=== PATIENT | female | born 1990 | race Caucasian/White ===

== ENCOUNTER → 2017-02-08 | Outpatient (CLI) | payer OTHER ==
[2017-02-08 12:47] LABS: BASO % 0.6 %; BASO ABS # 0.03 K/uL (0-0.2); COMPLETE YES; EOS % 3.5 %; HEMATOCRIT 42.5 % (37-47); IG% 0.2 %; LYMPH % 37.1 %; LYMPH ABS # 2.02 K/uL (1.2-3.4); MEAN CELL VOLUME 90.4 fL (80-100); MEAN CORPUSCULAR HEMOGLOBIN 32.1 pg (25-34); MEAN CORPUSCULAR HGB CONC 35.5 g/dl (32-36); MEAN PLATELET VOLUME 9.6 fL (7.4-10.4); MONO % 8.8 %; NEUT % 49.8 %; PLATELET COUNT 270 K/uL (130-400); WHITE BLOOD COUNT 5.45 K/uL (4.8-10.8)
[2017-02-08 13:19] LABS: ESTIMATED AVERAGE GLUCOSE 91 mg/dl; HA1C FLAG Normal (Normal)
[2017-02-08 13:37] LABS: ALT/SGPT 121 U/L (12-78); BLOOD UREA NITROGEN 9 mg/dl (7-18); BUN/CREATININE RATIO 11.8 (10-20); CALCIUM 8.3 mg/dl (8.5-10.1); CARBON DIOXIDE 28 mmol/L (21-32); CHLORIDE 103 mmol/L (98-107); CHOLESTEROL 166 mg/dl (0-200); CREATININE 0.76 mg/dl (0.60-1.20); GLUCOSE 78 mg/dl (70-99); POTASSIUM 3.6 mmol/L (3.5-5.1); SODIUM 138 mmol/L (136-145); TRIGLYCERIDES 106 mg/dl (0-150); VERY LOW DENSITY LIPOPROT CALC 21 mg/dl
[2017-02-08 13:46] LABS: ALB/GLOB RATIO 0.9 (0.9-2); ALKALINE PHOSPHATASE 64 U/L (45-117); AST/SGOT 64 U/L (15-37); CHOLESTEROL/HDL RATIO 3.1; HDL CHOLESTEROL 53 mg/dl; LDL CHOLESTEROL CALCULATED 92 mg/dl
== END | disposition home or self-care (01) ==
LOC: C.LABPBG 10:57
PROVIDERS: ATTEND Nurse Practitioner Family
DX: E03.9 Hypothyroidism, unspecified (principal); E66.9 Obesity, unspecified; Z13.220 Encounter for screening for lipoid disorders; Z13.1 Encounter for screening for diabetes mellitus

== ENCOUNTER 2017-11-22 11:26 | Emergency (ER) | payer SELFPAY ==
[~2017-11-22] VITALS: Ht 160 cm; Wt 80.0 kg
[2017-11-22 11:31] VITALS: TEMP 36.6; Ht 160 cm; Wt 80.0 kg
[2017-11-22] MEDS ORDERED: KETOROLAC TROMETHAMINE 30 MG/ML VIAL IV STA (12:03)
[2017-11-22] MEDS ORDERED: LEVOTHYROXINE 175 MCG TAB PO STA (12:03)
[2017-11-22] MEDS ORDERED: SODIUM CHLORIDE 0.9% 1000ML 1,000 ML IV STA (12:03)
[2017-11-22] MEDS ORDERED: CIPROFLOXACIN HCL 0.3% OP SOLN 2.5 ML BTL OP STA (12:03)
[2017-11-22] MEDS ORDERED: ONDANSETRON INJ 2 MG/ML 2 ML VIAL IV STA (12:03)
[2017-11-22] MEDS ORDERED: ACETAMINOPHEN 500 MG TAB PO STA (12:03)
[2017-11-22] MEDS ORDERED: AMPICILLIN/SULBACTAM SOD INJ 3,000 MG in SODIUM CHLORIDE 0.9% 100ML 100 ML IV ONE (12:15)
--- NOTE | 2017-11-22 12:21 | DIAGNOSTIC IMAGING REPORT ---
CHEST ONE VIEW PORTABLE CLINICAL HISTORY: 27 years-old Female presenting with cough. TECHNIQUE: Portable upright AP view of the chest was obtained. COMPARISON: None. FINDINGS: Cardiomediastinal silhouette normal. Lungs and pleural spaces clear. Osseous structures normal. Upper abdomen normal. IMPRESSION: 1. No acute cardiopulmonary disease. Electronically signed by: Tino Marte M.D. 11/22/2017 12:19 PM Dictated Date/Time: 11/22/2017 12:18 PM
--- NOTE | 2017-11-22 12:22 | EMERGENCY ROOM VISIT NOTE ---
History Report prepared by Lauren: Natali Deras Under the Supervision of: Dr. Miquel Perez M.D. First contact with patient: 11:47 Chief Complaint: SORETHROAT Stated Complaint: STYE, WHITE PUSS THROAT, BREATHING DIFFICULTIES History of Present Illness The patient is a 27 year old female who presents to the Emergency Room with complaints of worsening generalized illness beginning three weeks ago. The patient went to an acute care facility three weeks ago because she was having sinus pressure and difficulty breathing. She was diagnosed with a sinus infection and was started on a steroid and antibiotic. She has since finished her antibiotics. She reports swelling and a stye to her left eye beginning 8 hours ago. The patient does not wear corrective lenses. She notes a persistent cough, sore throat, decreased appetite, difficulty breathing, and nausea but denies any fever, urinary symptoms or vomiting. The patient took ibuprofen with minimal relief. She has a history of asthma and has been using an inhaler and nebulizer for her symptoms. She reports a history of bronchitis and hypothyroidism. She notes an inability to get her medications filled because she doesn't have insurance. The patient did not get a flu shot this year. Source of History: patient Onset: 3 weeks ago Position: other (generalized) Quality: other (illness) Timing: worsening Associated Symptoms: + sorethroat, + cough, + SOB, + nausea, No fevers, No vomiting, No urinary symptoms Review of Systems See HPI for pertinent positives & negatives. A total of 10 systems reviewed and were otherwise negative. Past Medical & Surgical Medical Problems: (1) Hypothyroidism Family History Patient reports no known family medical history. Social History Smoking Status: Never Smoker Marital Status: single Housing Status: lives with family Occupation Status: employed Current/Historical Medications Scheduled Amoxicillin & Pot Clavulanate (Augmentin 875-125 mg), 875 MG PO BID Ciprofloxacin Hcl (Ophth) (Ciloxan Oph), 1 DROPS OP TID Levothyroxine Sodium (Levothyroxine Sodium), 1 TAB PO DAILY Scheduled PRN Albuterol Sulf (Albuterol Sulfate), 1 VIAL INH DAILY PRN for SOB/Wheezing Allergies Coded Allergies: No Known Allergies (Unverified , 11/22/17) Physical Exam Vital Signs Date Time Temp Pulse Resp B/P (MAP) Pulse Ox O2 Delivery O2 Flow Rate FiO2 11/22/17 14:18 72 140/81 97 Room Air 11/22/17 11:59 92 18 149/97 99 Room Air 11/22/17 11:59 99 Room Air 11/22/17 11:36 99 Room Air 11/22/17 11:31 36.6 119 19 146/104 99 Room Air Physical Exam GENERAL: Patient is in no acute distress. HEENT: Bilateral otitis media, worse on left. Throat erythema with exudate, no evidence of peritonsillar abscess, nasal congestion present, edema to eyelids worse on left with evidence of bilateral conjunctivitis, puss like discharge on lashes worse on left, pupils are round and reactive to light. NECK: No stridor, moderate bilateral anterior cervical adenopathy, no meningismus, trachea is midline. LUNGS: Clear to auscultation bilaterally, no wheeze, no rhonchi, breath sounds equal. HEART: Without murmurs gallops or rubs, regular rate and rhythm. ABDOMEN: Soft, nontender, bowel sounds positive, no hernias, no peritonitis. EXTREMITIES: No cyanosis or edema, full range of motion of all the joints without pain or difficulty, no signs for acute trauma. NEUROLOGIC: Oriented x 3, no acute motor or sensory deficits, no focal weakness. SKIN: No rash, no jaundice, no diaphoresis. Medical Decision & Procedures ER Provider Diagnostic Interpretation: Radiology results as stated below per my review and radiologist interpretation: CHEST ONE VIEW PORTABLE FINDINGS: Cardiomediastinal silhouette normal. Lungs and pleural spaces clear. Osseous structures normal. Upper abdomen normal. IMPRESSION: 1. No acute cardiopulmonary disease. Electronically signed by: Tino Marte M.D. Laboratory Results 11/22/17 12:35 Red Blood Count 4.61, Mean Corpuscular Volume 87.2, Mean Corpuscular Hemoglobin 31.0, Mean Corpuscular Hemoglobin Concent 35.6, Mean Platelet Volume 9.7, Neutrophils (%) (Auto) 67.0, Lymphocytes (%) (Auto) 22.1, Monocytes (%) (Auto) 7.4, Eosinophils (%) (Auto) 3.0, Basophils (%) (Auto) 0.5, Neutrophils # (Auto) 5.41, Lymphocytes # (Auto) 1.78, Monocytes # (Auto) 0.60, Eosinophils # (Auto) 0.24, Basophils # (Auto) 0.04 11/22/17 12:35 Test 11/22/17 12:30 11/22/17 12:35 Influenza Type A Antigen Neg for Influ A (NEG) Influenza Type B Antigen Neg for Influ B (NEG) White Blood Count 8.07 K/uL (4.8-10.8) Red Blood Count 4.61 M/uL (4.2-5.4) Hemoglobin 14.3 g/dL (12.0-16.0) Hematocrit 40.2 % (37-47) Mean Corpuscular Volume 87.2 fL (80-100) Mean Corpuscular Hemoglobin 31.0 pg (25-34) Mean Corpuscular Hemoglobin Concent 35.6 g/dl (32-36) Platelet Count 235 K/uL (130-400) Mean Platelet Volume 9.7 fL (7.4-10.4) Neutrophils (%) (Auto) 67.0 % Lymphocytes (%) (Auto) 22.1 % Monocytes (%) (Auto) 7.4 % Eosinophils (%) (Auto) 3.0 % Basophils (%) (Auto) 0.5 % Neutrophils # (Auto) 5.41 K/uL (1.4-6.5) Lymphocytes # (Auto) 1.78 K/uL (1.2-3.4) Monocytes # (Auto) 0.60 K/uL (0.11-0.59) Eosinophils # (Auto) 0.24 K/uL (0-0.5) Basophils # (Auto) 0.04 K/uL (0-0.2) RDW Standard Deviation 41.5 fL (36.4-46.3) RDW Coefficient of Variation 12.9 % (11.5-14.5) Immature Granulocyte % (Auto) 0.0 % Immature Granulocyte # (Auto) 0.00 K/uL (0.00-0.02) Anion Gap 6.0 mmol/L (3-11) Est Creatinine Clear Calc Drug Dose 132.2 ml/min Estimated GFR () 141.7 Estimated GFR (Non- 122.3 BUN/Creatinine Ratio 17.3 (10-20) Calcium Level 8.8 mg/dl (8.5-10.1) Total Bilirubin 0.5 mg/dl (0.2-1) Aspartate Amino Transf (AST/SGOT) 12 U/L (15-37) Alanine Aminotransferase (ALT/SGPT) 20 U/L (12-78) Alkaline Phosphatase 83 U/L (45-117) Total Protein 7.5 gm/dl (6.4-8.2) Albumin 3.1 gm/dl (3.4-5.0) Globulin 4.4 gm/dl (2.5-4.0) Albumin/Globulin Ratio 0.7 (0.9-2) Thyroid Stimulating Hormone (TSH) 19.500 uIu/ml (0.300-4.500) Free Thyroxine 1.14 ng/dl (0.80-1.60) Free Triiodothyronine 3.25 pg/ml (2.30-4.20) Monoscreen NEG (NEG) Laboratory results reviewed by me. Medications Administered Medications (Trade) Dose Ordered Sig/Stanley Route Start Time Stop Time Status Last Admin Dose Admin Ciprofloxacin HCl (Ciprofloxacin 0.3% Op Soln) 2 drops NOW STAT OP 11/22/17 12:03 11/22/17 12:09 DC 11/22/17 12:18 2 DROPS Ampicillin Sodium/ Sulbactam Sodium 3000 mg/Sodium Chloride 108 ml @ 200 mls/hr ONE ONCE IV 11/22/17 12:15 11/22/17 12:47 DC 11/22/17 12:47 200 MLS/HR Sodium Chloride 1,000 ml @ 999 mls/hr Q1H1M STAT IV 11/22/17 12:03 11/22/17 13:03 DC 11/22/17 12:19 999 MLS/HR Ondansetron HCl (Zofran Inj) 4 mg NOW STAT IV 11/22/17 12:03 11/22/17 12:09 DC 11/22/17 12:17 4 MG Levothyroxine Sodium (Synthroid Tab) 175 mcg NOW STAT PO 11/22/17 12:03 11/22/17 12:09 DC 11/22/17 12:24 175 MCG Acetaminophen (Tylenol Tab) 1,000 mg NOW STAT PO 11/22/17 12:03 11/22/17 12:09 DC 11/22/17 12:17 1,000 MG Ketorolac Tromethamine (Toradol Inj) 30 mg NOW STAT IV 11/22/17 12:03 11/22/17 12:09 DC 11/22/17 12:17 30 MG ECG Indication: palpitations Rate (beats per minute): 95 Rhythm: sinus rhythm Findings: PVC, no acute ischemic change ED Course 1148: The patient was evaluated in room B10. A complete history and physical exam was performed. 1203: Ordered Toradol Inj 30 mg IV, Tylenol Tab 1000 mg PO, Synthroid Tab 175 mcg PO, Zofran Inj 4 mg IV, Sodium Chloride 1000 ml @ 999 mls/hr IV, Ciprofloxacin HCl 2 drops. 1215: Ordered Ampicillin Sodium/Sulbactam Sodium 3000 mg/Sodium Chloride 108 ml @ 200 mls/hr IV. 1415: The patient is feeling better and would like to go home. 1421: Reevaluated the patient. Discussed results and discharge instructions: She verbalized understanding and agreement. The patient is ready for discharge. 2100: Ordered Augmentin Tab 875 mg PO. Medical Decision Differential diagnoses include: sinusitis, step pharyngitis, otitis media, conjunctivitis, pneumonia, dehydration, bronchitis, influenza, flu-like illness. There is no leukocytosis or concerning anemia. No significant electrolyte abnormality, kidney failure or hepatitis. TSH is elevated but the T4 and T3 levels are both normal. Mineral testing and influenza testing is negative. Chest film does not show pneumonia or pneumothorax. The patient received IV saline, oral Tylenol, IV Toradol. She was given IV Unasyn and ophthalmic Cipro drops. She received a dose of oral levothyroxine. The patient looks well since receiving treatment, she feels improved. She appears to have a bilateral otitis media, pharyngitis and bilateral conjunctivitis. She is being discharged on Augmentin and Cipro. Hydration and rest were encouraged. I am going to restart her thyroid medication. I will start her on 75 g of levothyroxine. She will follow with her doctors office this week for a recheck. If worsening, she can return. Medication Reconcilliation Current Medication List: was personally reviewed by me Blood Pressure Screening Patient's blood pressure: Elevated blood pressure Blood pressure disposition: Elevated BP felt to be situational Impression Primary Impression: Pharyngitis Additional Impressions: Conjunctivitis Otitis media Scribe Attestation The scribe's documentation has been prepared under my direction and personally reviewed by me in its entirety. I confirm that the note above accurately reflects all work, treatment, procedures, and medical decision making performed by me. Departure Information Dispostion Home / Self-Care Prescriptions Levothyroxine Sodium (LEVOTHYROXINE SODIUM) 75 Mcg Tab 1 TAB PO DAILY for 15 Days, #15 TAB 3 Refills Prov: Miquel Perez M.D. 11/22/17 Amoxicillin & Pot Clavulanate (Augmentin 875-125 mg) 1 Tab Tab 875 MG PO BID for 10 Days, #20 TAB Prov: Miquel Perez M.D. 11/22/17 Ciprofloxacin Hcl (Ophth) (CILOXAN OPH) 0.3 % Ratna 1 DROPS OP TID, #1 BTL Prov: Miquel Perez M.D. 11/22/17 Referrals Pablo Fernandez III, CRNP (PCP) Forms HOME CARE DOCUMENTATION FORM, IMPORTANT VISIT INFORMATION Patient Instructions My [facility] Additional Instructions cipro drops 1 to each eye 3x per day augmentin 2x per day for 10 days sudafed otc for congestion--ask the pharmacist fluids rest motrin and or tylenol for pain and fever and aches restart the thyroid meds see braydon fuchs for a recheck this week return if worsening Problem Qualifiers
[2017-11-22] MEDS ORDERED: RRALBUT2.5 INH (12:26)
[2017-11-22 12:50] LABS: BASO % 0.5 %; BASO ABS # 0.04 K/uL (0-0.2); COMPLETE YES; HEMATOCRIT 40.2 % (37-47); LYMPH % 22.1 %; LYMPH ABS # 1.78 K/uL (1.2-3.4); MEAN CELL VOLUME 87.2 fL (80-100); MEAN CORPUSCULAR HGB CONC 35.6 g/dl (32-36); MEAN PLATELET VOLUME 9.7 fL (7.4-10.4); MONO % 7.4 %; PLATELET COUNT 235 K/uL (130-400); RED BLOOD COUNT 4.61 M/uL (4.2-5.4); WHITE BLOOD COUNT 8.07 K/uL (4.8-10.8)
[2017-11-22 13:08] LABS: BUN/CREATININE RATIO 17.3 (10-20); CALCIUM 8.8 mg/dl (8.5-10.1); CREATININE 0.64 mg/dl (0.60-1.20); POTASSIUM 3.3 mmol/L (3.5-5.1)
[2017-11-22 13:19] LABS: ALB/GLOB RATIO 0.7 (0.9-2); THYROID STIMULATING HORMONE 19.5 uIu/ml (0.300-4.500)
[2017-11-22 14:18] VITALS: BP 140/81; PULSE 72; O2SAT 97
[2017-11-22] MEDS ORDERED: CIPR0.3S OP (14:18)
[2017-11-22] MEDS ORDERED: LEVO75TA5 PO (14:18)
[2017-11-22] MEDS ORDERED: AMOX875T PO (14:18)
[2017-11-22] MEDS ORDERED: AMOXICIL/CLAVU 875MG HOME PACK PO ONE (15:04)
[2017-11-22] MEDS ORDERED: AMOXICILLIN/CLAVULANATE TAB 875 MG TAB PO ONE (21:00)
== END 2017-11-22 15:11 | disposition home or self-care (01) ==
LOC: C.EDB 11:29
DX: J02.9 Acute pharyngitis, unspecified (principal); H10.9 Unspecified conjunctivitis; H66.93 Otitis media, unspecified, bilateral; R06.02 Shortness of breath; E03.9 Hypothyroidism, unspecified

== ENCOUNTER 2018-03-10 11:46 | Emergency (ER) | payer SELFPAY ==
[~2018-03-10] VITALS: Ht 160 cm; Wt 77.3 kg
[~2018-03-10 11:46] MED LIST: LEVO75TA5 PO; RRALBUT2.5 INH
[2018-03-10 11:48] VITALS: TEMP 36.6; Ht 160 cm; Wt 77.3 kg
[2018-03-10] MEDS ORDERED: KETOROLAC TROMETHAMINE 30 MG/ML VIAL IV STA (12:15)
[2018-03-10] MEDS ORDERED: SODIUM CHLORIDE 0.9% 1000ML 1,000 ML IV ONE (12:15)
[2018-03-10] MEDS ORDERED: OPTIRAY 320 IV PRN (12:30)
[2018-03-10] MEDS ORDERED: AMOX250C3 PO (12:31)
--- NOTE | 2018-03-10 12:35 | EMERGENCY ROOM VISIT NOTE ---
History First contact with patient: 11:53 Chief Complaint: ILLNESS Stated Complaint: BULGE IN THROAT, EAR INFECTION, CONFUSION History of Present Illness The patient is a 27 year old female who presents to the Emergency Room with complaints of bilateral ear pain left greater than right, a sore throat and a fullness in her throat for the last 3 weeks. Patient saw her primary care physician earlier this week. She was started on amoxicillin. She has not seen any significant improvement. She denies any fever. She has tried ibuprofen with minimal relief of the pain. The patient also reports feeling short of breath. She denies any cough. No chest pain. She is concerned that she may have a blood clot. The patient has had a significant decrease in her hearing over the last several weeks. She was treated for an ear infection in October 2017. Her symptoms temporarily got better Of note, the patient also reports feeling depressed and paranoid. She denies any suicidal or homicidal thoughts. Review of Systems 10 system review performed and negative unless noted in HPI or below Past Medical/Surgical History Medical Problems: (1) Hypothyroidism Family History Patient reports no known family medical history. Social History Smoking Status: Never Smoker Marital Status: single Housing Status: lives with family Occupation Status: employed Current/Historical Medications Scheduled Amoxicillin (Amoxil), 250 MG PO TID Amoxicillin & Pot Clavulanate (Augmentin 875-125 mg), 1 TAB PO BID Prednisone (Prednisone), 50 MG PO DAILY Scheduled PRN Albuterol Sulf (Albuterol Sulfate), 1-2 VIAL INH DAILY PRN for SOB/Wheezing Physical Exam Vital Signs Date Time Temp Pulse Resp B/P (MAP) Pulse Ox O2 Delivery O2 Flow Rate FiO2 03/10/18 15:35 89 18 132/75 100 03/10/18 15:08 89 18 132/75 100 Room Air 03/10/18 13:16 74 18 137/93 99 Room Air 03/10/18 11:48 36.6 97 18 144/92 99 Room Air Physical Exam VITALS: Vitals are noted on the nurse's note and reviewed by myself. Vital signs stable. GENERAL: 27-year-old female, tearful in appearance,, in no acute distress, nondiaphoretic, well-developed well-nourished. SKIN: The skin was without rashes, erythema, edema, or bruising. HEAD: Normocephalic atraumatic. EARS: External auditory canals are erythematous bilaterally. Right tympanic membrane with a significant purulent effusion and erythematous. Left tympanic membrane is significantly erythematous. Questionable perforation. EYES: Pupils equal round and reactive to light and accommodation. Conjunctivae without injection, sclerae without icterus. Extraocular movements intact. NOSE: Patent, turbinates without inflammation or discharge. No sinus tenderness. MOUTH: Mucous membranes moist. Tonsils are not enlarged. Pharynx without erythema or exudate. Uvula midline. Airway patent. Tongue does not deviate. NECK: Supple without nuchal rigidity. Lymphadenopathy in the anterior and posterior cervical chain bilaterally.. Cervical spine is nontender. No JVD. HEART: Regular rate and rhythm without murmurs gallops or rubs. LUNGS: Clear to auscultation bilaterally without wheezes, rales or rhonchi. No accessory muscle use. ABDOMEN: Positive bowel sounds x 4.Soft, nontender, without organomegaly. No guarding or rebound tenderness. MUSCULOSKELETAL: No muscle atrophy, erythema, or edema noted. Strength 5/5 throughout. NEURO: Patient was alert and oriented to person place and time. Cerebellar function intact. Negative Romberg. Cranial nerves grossly intact. Normal sensation to touch. No focal neurological deficits. Medical Decision & Procedures ER Provider Diagnostic Interpretation: Chest x-ray IMPRESSION: No active disease in the chest. Electronically signed by: Miquel Nogueira M.D. 03/10/2018 1:06 PM Dictated Date/Time: 03/10/2018 1:[address] IMPRESSION: 1. Moderate mucosal thickening of the ethmoid sinuses and nasal cavity with mild mucosal thickening of the remainder of the sinuses. Several occluded major drainage pathways, as described above. No air-fluid levels or bony destruction. 2. Bilateral otomastoiditis effusions with moderate amount of fluid within the bilateral mastoid air cells and within each middle ear. Sterility cannot be assessed by CT. Ossicles appear intact. 3. Mild leftward deviation of the nasal septum with moderate spur formation. Soft tissue neck CT IMPRESSION: 1. There are numerous mildly enlarged cervical lymph nodes as above. These are nonspecific and likely on a reactive basis. Clinical follow-up to resolution is recommended. Follow-up with ultrasound is recommended if these nodes fail to resolve over a reasonable time course. 2. The pharyngeal soft tissues are normal in appearance. 3. There are large bilateral mastoid effusions. Fluid is also present within the middle ear bilaterally. Electronically signed by: Miquel Nogueira M.D. 03/10/2018 1:24 PM Dictated Date/Time: 03/10/2018 1:18 PM Laboratory Results 03/10/18 12:25 Red Blood Count 4.94, Mean Corpuscular Volume 85.0, Mean Corpuscular Hemoglobin 30.2, Mean Corpuscular Hemoglobin Concent 35.5, Mean Platelet Volume 9.4, Neutrophils (%) (Auto) 49.8, Lymphocytes (%) (Auto) 32.2, Monocytes (%) (Auto) 7.7, Eosinophils (%) (Auto) 9.4, Basophils (%) (Auto) 0.7, Neutrophils # (Auto) 2.77, Lymphocytes # (Auto) 1.79, Monocytes # (Auto) 0.43, Eosinophils # (Auto) 0.52, Basophils # (Auto) 0.04 03/10/18 12:25 Test 03/10/18 12:25 03/10/18 12:37 White Blood Count 5.56 K/uL (4.8-10.8) Red Blood Count 4.94 M/uL (4.2-5.4) Hemoglobin 14.9 g/dL (12.0-16.0) Hematocrit 42.0 % (37-47) Mean Corpuscular Volume 85.0 fL (80-100) Mean Corpuscular Hemoglobin 30.2 pg (25-34) Mean Corpuscular Hemoglobin Concent 35.5 g/dl (32-36) Platelet Count 274 K/uL (130-400) Mean Platelet Volume 9.4 fL (7.4-10.4) Neutrophils (%) (Auto) 49.8 % Lymphocytes (%) (Auto) 32.2 % Monocytes (%) (Auto) 7.7 % Eosinophils (%) (Auto) 9.4 % Basophils (%) (Auto) 0.7 % Neutrophils # (Auto) 2.77 K/uL (1.4-6.5) Lymphocytes # (Auto) 1.79 K/uL (1.2-3.4) Monocytes # (Auto) 0.43 K/uL (0.11-0.59) Eosinophils # (Auto) 0.52 K/uL (0-0.5) Basophils # (Auto) 0.04 K/uL (0-0.2) RDW Standard Deviation 39.1 fL (36.4-46.3) RDW Coefficient of Variation 12.7 % (11.5-14.5) Immature Granulocyte % (Auto) 0.2 % Immature Granulocyte # (Auto) 0.01 K/uL (0.00-0.02) D-Dimer 220 ug/L FEU (0-500) Anion Gap 5.0 mmol/L (3-11) Est Creatinine Clear Calc Drug Dose 117.1 ml/min Estimated GFR () 135.3 Estimated GFR (Non- 116.7 BUN/Creatinine Ratio 10.6 (10-20) Calcium Level 9.0 mg/dl (8.5-10.1) Total Bilirubin 0.9 mg/dl (0.2-1) Aspartate Amino Transf (AST/SGOT) 18 U/L (15-37) Alanine Aminotransferase (ALT/SGPT) 21 U/L (12-78) Alkaline Phosphatase 91 U/L (45-117) Total Protein 7.6 gm/dl (6.4-8.2) Albumin 3.7 gm/dl (3.4-5.0) Globulin 3.9 gm/dl (2.5-4.0) Albumin/Globulin Ratio 0.9 (0.9-2) Thyroid Stimulating Hormone (TSH) 27.000 uIu/ml (0.300-4.500) Monoscreen NEG (NEG) Urine Color YELLOW Urine Appearance CLEAR (CLEAR) Urine pH 7.0 (4.5-7.5) Urine Specific [place] 1.015 (1.000-1.030) Urine Protein NEG (NEG) Urine Glucose (UA) NEG (NEG) Urine Ketones NEG (NEG) Urine Occult Blood NEG (NEG) Urine Nitrite NEG (NEG) Urine Bilirubin NEG (NEG) Urine Urobilinogen NEG (NEG) Urine Leukocyte Esterase NEG (NEG) Urine Test NEG (NEG) Urine Opiates Screen NEG (NEG) Urine Methadone, Qualitative NEG (NEG) Urine Barbiturates NEG (NEG) Urine Phencyclidine (PCP) Level NEG (NEG) Ur Amphetamine/Methamphetamine POS (NEG) MDMA (Ecstasy) Screen NEG (NEG) Urine Benzodiazepines Screen NEG (NEG) Urine Cocaine Metabolite NEG (NEG) Urine Marijuana (THC) POS (NEG) Medications Administered Medications (Trade) Dose Ordered Sig/Stanley Route Start Time Stop Time Status Last Admin Dose Admin Sodium Chloride 1,000 ml @ 999 mls/hr Q1H1M ONCE IV 03/10/18 12:15 03/10/18 13:15 DC 03/10/18 12:35 999 MLS/HR Ketorolac Tromethamine (Toradol Inj) 30 mg NOW STAT IV 03/10/18 12:15 03/10/18 12:20 DC 03/10/18 12:35 30 MG Dexamethasone Sodium Phosphate (Decadron Inj) 10 mg NOW STAT IV 03/10/18 14:43 03/10/18 14:45 DC 03/10/18 15:04 10 MG Ofloxacin (Ocuflox 0.3% Oph Soln) 5 drops ONE STAT OP 03/10/18 14:58 03/10/18 15:00 DC 03/10/18 15:14 5 DROPS Amoxicillin/ Clavulanate Potassium (Augmentin Tab) 875 mg NOW ONCE PO 03/10/18 15:00 03/10/18 15:02 DC 03/10/18 15:04 875 MG ED Course Patient was seen and examined Vital signs including blood pressure were reviewed medications list was verified with patient Labs were obtained, and a saline lock was established The patient was medicated with Toradol 30 mg IV. She was hydrated with 1 L of normal saline. The patient was also interviewed by the psychiatric liaison. Imaging was performed and reviewed The case was discussed with my supervising physician and subsequently ENT. We discussed the case. The patient was given 1 dose of Augmentin. She was also given 1 dose of Decadron 10 mg IV. Ofloxacin drops were applied to the left ear. I thoroughly reviewed discharge instructions. She was comfortable being discharged home. I reviewed discharge instructions the patient. They voiced understanding and had no further questions. Medical Decision Differential diagnosis: Bronchitis, pneumonia, strep pharyngitis, viral pharyngitis, influenza, otitis media, tympanic membrane perforation, mastoiditis. Pulmonary embolus, sinusitis, paranoia, depression This patient is a 27-year-old female presents to the emergency department with multiple complaints. Please see the HPI. On exam, she was nontoxic in appearance. She did have significant bilateral otitis media with a questionable left tympanic membrane perforation. She did not have any mastoid tenderness or erythema. Her labs reveal no leukocytosis. Imaging was performed. She has significant sinusitis. The CT findings were thoroughly discussed with Cynthia Atkinson PA-C from ENT. She suggested changing the patient from amoxicillin to Augmentin. She also encouraged steroids. She thinks that these are probably chronic changes. Again, the patient did not have any mastoid tenderness on exam. She is afebrile. Regarding the perforation, the patient will be put on Floxin drops. I believe she is stable to be discharged home with close follow-up from ENT. The patient was comfortable with this plan. She will return with any worsening symptoms. Of note, the patient's TSH is high. She was notified of this. She is noncompliant with her Synthroid. This chart was completed in part utilizing [employer] Speech Voice Recognition software. Attempts were made to minimize the grammatical errors, random word insertions, pronoun errors and incomplete sentences. Any formal questions or concerns about the content, text or information contained within the body of this dictation should be directly addressed to the provider for clarification. Medication Reconcilliation Current Medication List: was personally reviewed by me Blood Pressure Screening Patient's blood pressure: Elevated blood pressure Blood pressure disposition: Did not require urgent referral Consults Consulting Physician: Dr. Sands/Cynthia Atkinson PA-C Impression Primary Impression: Otitis media Additional Impression: Sinusitis Departure Information Dispostion Home / Self-Care Condition GOOD Prescriptions Prednisone (Prednisone) 50 Mg Tab 50 MG PO DAILY for 4 Days, #4 TAB Prov: Lacy Segura PA-C 03/10/18 Amoxicillin & Pot Clavulanate (Augmentin 875-125 mg) 1 Tab Tab 1 TAB PO BID for 10 Days, #20 TAB Prov: Lacy Segura PA-C 03/10/18 Referrals No Doctor, Assigned (PCP) Claus Sands M.D. Patient Instructions My [facility] Additional Instructions You were evaluated in the emergency department for ear pain and decreased hearing. This is likely due to an infection. Please take the ENTIRE course of Augmentin Stop amoxicillin Please take the entire course of prednisone Please apply Floxin ophthalmic drops. 5 drops to the left ear twice daily for 10 days please call the ENT doctor tomorrow morning for a follow-up appointment Please do not hesitate to return to the emergency department with any new or worsening symptoms It was a pleasure participating in your care today Problem Qualifiers
[2018-03-10 12:44] LABS: BASO % 0.7 %; BASO ABS # 0.04 K/uL (0-0.2); EOS % 9.4 %; EOS ABS # 0.52 K/uL (0-0.5); HEMOGLOBIN 14.9 g/dL (12.0-16.0); IG# 0.01 K/uL (0.00-0.02); LYMPH % 32.2 %; LYMPH ABS # 1.79 K/uL (1.2-3.4); MEAN CORPUSCULAR HEMOGLOBIN 30.2 pg (25-34); MEAN CORPUSCULAR HGB CONC 35.5 g/dl (32-36); MEAN PLATELET VOLUME 9.4 fL (7.4-10.4); MONO % 7.7 %; MONO ABS # 0.43 K/uL (0.11-0.59); NEUT % 49.8 %; NEUT ABS # 2.77 K/uL (1.4-6.5); PLATELET COUNT 274 K/uL (130-400); RED CELL DISTRIBUTION WIDTH CV 12.7 % (11.5-14.5); RED CELL DISTRIBUTION WIDTH SD 39.1 fL (36.4-46.3); WHITE BLOOD COUNT 5.56 K/uL (4.8-10.8)
[2018-03-10 12:58] LABS: ALBUMIN 3.7 gm/dl (3.4-5.0); CREATININE 0.71 mg/dl (0.60-1.20); POTASSIUM 3.8 mmol/L (3.5-5.1)
[2018-03-10 13:08] LABS: TOTAL PROTEIN 7.6 gm/dl (6.4-8.2)
--- NOTE | 2018-03-10 13:08 | DIAGNOSTIC IMAGING REPORT ---
TWO VIEW CHEST CLINICAL HISTORY: Dyspnea. FINDINGS: PA and lateral chest radiographs are compared to study dated 11/22/2017. The cardiomediastinal silhouette is unremarkable. The lungs and pleural spaces are clear. There is no pneumothorax. The bony thorax appears intact. IMPRESSION: No active disease in the chest. Electronically signed by: Miquel Nogueira M.D. 03/10/2018 1:06 PM Dictated Date/Time: 03/10/2018 1:06 PM
--- NOTE | 2018-03-10 13:26 | DIAGNOSTIC IMAGING REPORT ---
CT SCAN OF THE NECK WITH IV CONTRAST CLINICAL HISTORY: Throat pressure. Suspected lymphadenopathy. COMPARISON STUDY: No priors. TECHNIQUE: Following the IV administration of 94 cc of Optiray 320, CT scan of the soft tissues of the neck was performed from the skull base to the upper chest. Images are reviewed in the axial, sagittal, and coronal planes. IV contrast was administered without complication. A dose lowering technique was utilized adhering to the principles of ALARA. FINDINGS: Pharynx: The nasopharynx, oropharynx, and laryngeal pharynx are normal in appearance. The pharyngeal airway is widely patent. There is no evidence of mass lesion. The vocal cords are symmetric. The parapharyngeal fat is well maintained. The prevertebral/retropharyngeal soft tissues are within normal limits. The epiglottis is normal. Lymphadenopathy: There are numerous mildly enlarged cervical lymph nodes. A node at the right carotid bifurcation seen on image #211 measures 1.8 x 1.3 cm. A right posterior cervical chain node on image #178 measures 1.3 x 1.0 cm. The largest left cervical node is seen on image #196 and measures 2.1 x 0.7 cm. Thyroid: Normal in size and attenuation. Salivary glands: The parotid and submandibular glands are within normal limits. Prominent intraparotid lymph nodes measure up to 6 mm. Brain parenchyma: The visualized brain parenchyma at the skull base is normal in appearance. Vascular structures: The carotid arteries and jugular veins are widely patent bilaterally. Skeletal structures: Imaged portions of the calvarium at the skull base are within normal limits. The cervical spine appears intact. Sinuses and mastoids: There is trace mucosal thickening within the maxillary antra. Trace mucosal thickening is also seen within the right frontal sinus and the anterior ethmoid sinuses. The remaining paranasal sinuses are clear. There are large bilateral mastoid effusions. Fluid is present within the middle ear cavity bilaterally. Lung apices: Visualized apical lung parenchyma is clear. IMPRESSION: 1. There are numerous mildly enlarged cervical lymph nodes as above. These are nonspecific and likely on a reactive basis. Clinical follow-up to resolution is recommended. Follow-up with ultrasound is recommended if these nodes fail to resolve over a reasonable time course. 2. The pharyngeal soft tissues are normal in appearance. 3. There are large bilateral mastoid effusions. Fluid is also present within the middle ear bilaterally. Electronically signed by: Miquel Nogueira M.D. 03/10/2018 1:24 PM Dictated Date/Time: 03/10/2018 1:18 PM
--- NOTE | 2018-03-10 13:29 | DIAGNOSTIC IMAGING REPORT ---
SINUS CT WITH CONTRAST CLINICAL HISTORY: Severe bilateral ear pain with decreased hearing. Sinus pressure. COMPARISON STUDY: None. Technique: Helical axial images of the sinuses were obtained following intravenous administration 94 cc of Optiray 320 IV. Coronal reformats were viewed. A dose lowering technique was utilized adhering to the principles of ALARA. CT DOSE: 606.22 mGy.cm FINDINGS: The CT of the neck will be reported separately. The orbits are unremarkable. Visualized portions of the intracranial contents are unremarkable. Enlarged bilateral cervical lymph nodes are better depicted on the CT of the neck. Please see that report for further description. There is mild mucosal thickening of the frontal, maxillary and sphenoid sinuses with moderate mucosal thickening of the inferior ethmoid sinuses and nasal cavity. There is leftward deviation of the nasal septum with spur formation. The ostiomeatal complexes are narrowed by mucosal thickening. The sphenoethmoidal recesses are also occluded. There is no bony destruction within the sinuses. There is no mass within the nasal cavity or the sinuses. There is a moderate amount of fluid within the bilateral mastoid air cells as well as fluid within each middle ear, adjacent to the ossicles. The ossicles and each scutum appear intact. IMPRESSION: 1. Moderate mucosal thickening of the ethmoid sinuses and nasal cavity with mild mucosal thickening of the remainder of the sinuses. Several occluded major drainage pathways, as described above. No air-fluid levels or bony destruction. 2. Bilateral otomastoiditis effusions with moderate amount of fluid within the bilateral mastoid air cells and within each middle ear. Sterility cannot be assessed by CT. Ossicles appear intact. 3. Mild leftward deviation of the nasal septum with moderate spur formation. Electronically signed by: Isidro East M.D. 03/10/2018 1:28 PM Dictated Date/Time: 03/10/2018 1:19 PM
[2018-03-10] MEDS ORDERED: DEXAMETHASONE SOD INJ 4 MG/ML VIAL IV STA (14:43)
[2018-03-10] MEDS ORDERED: AMPICILLIN/SULBACTAM SOD INJ 3,000 MG in SODIUM CHLORIDE 0.9% 100ML 100 ML IV STA (14:43)
[2018-03-10] MEDS ORDERED: OFLOXACIN 0.3% OP SOLN 5 ML BTL OP STA (14:58)
[2018-03-10] MEDS ORDERED: AMOXICILLIN/CLAVULANATE TAB 875 MG TAB PO ONE (15:00)
[2018-03-10] MEDS ORDERED: PRED50TA PO (15:09)
[2018-03-10] MEDS ORDERED: AMOX875T PO (15:09)
[2018-03-10 15:35] VITALS: BP 132/75; PULSE 89; O2SAT 100
--- NOTE | 2018-03-15 08:15 | EDITING REQUIRED CODING QUERY ---
CODING QUERY To promote full compliance with coding requirements relating to patient care, provider participation is requested in all cases of summer internship uncertainty. Please assist us with the question(s) below: Coding Question(s): Patient interviewed by psychiatric liaison. Please document any diagnoses related to the psychiatric liaison visit. Physician's Response(s): Thank you Cierra Mora Principal Diagnosis: "_that condition established after study, to be chiefly responsible for occasioning the admission of the patient to the hospital for care." Co-Existing Principal Diagnosis: "_when two or more diagnoses equally meet the criteria for principal diagnosis as determined by the circumstances of admission, diagnostic work up, and/or therapy provided, and the Alphabetic Index, Tabular List, or another coding guideline does not provide sequencing direction, any one of the diagnoses may be sequenced first." "When the physician has documented what appears to be a current diagnosis in the body of the record, but has not included the diagnosis in the final diagnostic statement, the physician should be asked whether the diagnosis should be added." (Source [facility] 2 QTR90. p3-4)
== END 2018-03-10 15:36 | disposition home or self-care (01) ==
LOC: C.EDB 11:48
DX: H66.93 Otitis media, unspecified, bilateral (principal); J32.9 Chronic sinusitis, unspecified; F22 Delusional disorders; F41.9 Anxiety disorder, unspecified; R79.89 Other specified abnormal findings of blood chemistry; Z91.14 Patient's other noncompliance with medication regimen; Z86.39 Personal history of other endocrine, nutritional and metabolic disease